=== PATIENT | male | born 1955 | race Caucasian/White ===

== ENCOUNTER 2023-10-25 10:27 | Emergency (ER) | payer OTHER, SELFPAY ==
[2023-10-25 10:52] VITALS: BP 125/80
[2023-10-25 11:16] LABS: % Basophils 0.3 % (0-2); % Eosinophils 2.1 % (0-6); % Immature Granulocytes 0.1 % (0-0.5); % Lymphocytes 20.4 % (20.5-51.1); % Monocytes 11.8 % (1.7-9.3); % Neutrophils 65.3 % (42.2-75.2); Absolute Eosinophils 0.2 10^3/uL (0-0.7); Absolute Lymphocytes 1.6 10^3/uL (1.2-3.4); Absolute Monocytes 0.9 10^3/uL (0.1-0.6); Hemoglobin 15.4 g/dL (13.0-18.0); Mean Corp Hgb Conc. 35.8 g/dL (33.0-37.0); Mean Corpuscular Hgb 33.3 pg (27.0-31.0); Mean Corpuscular Volume 92.9 fL (80.0-94.0); Mean Platelet Volume 10.4 fL (7.4-10.4); Nucleated Red Blood Cells % 0 % (-); Platelet Count 207 10^3/uL (130-400); Red Blood Cell Count 4.63 10^6/uL (4.70-6.10); Red Cell Dist. Width 12.2 % (11.5-14.5); White Blood Cell Count 7.6 10^3/uL (4.8-10.8)
[2023-10-25 11:36] LABS: Troponin I < 0.012 ng/ml
--- NOTE | 2023-10-25 11:44 | ED.GENMED ---
History of Present Illness
General
Chief Complaint: Musculo-Skeletal Complaint
Time Seen by Provider: 10/25/23 11:33
History of Present Illness
History of Present Illness:
Patient is a 68-year-old male with past medical history of CAD with CABG x 3 in 2019, history of vertigo, hypertension, GERD, and history of prior kidney stones, here today for evaluation of approximately 5 days of atraumatic left-sided shoulder
pain. Pain is primarily anteriorly along the left shoulder joint and is noted to be worse with movement and improved with rest. Patient denies radiation of pain into the chest. No difficulty breathing. No back pain noted. He did at 1 point
noticed numbness in his left pinky but this was after waking up and quickly resolved. He has had no recurrence of this. Pain at times does radiate along the biceps region. Patient denies falls, trauma, or injuries. Patient was seen by his family
doctor today, ordered an EKG, which was noted to be abnormal and ultimately directed to the emergency department to rule out ACS.
Past History
Past History
ED Past Medical History: GERD, HTN and Other (Kidney stones)
ED Past Surgical History: Cardiac and Other (Umbilical hernia); Negative Appendectomy
Social History
Tobacco: Non-smoker
Alcohol: Occasional
Drug: None
Personal:
Living: with family
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
Family History
Family History: Other (Noncontributory)
Review of Systems
Review of Systems
All Other Systems: ROS reviewed and negative except as documented in HPI and ROS
Phy Exam
Physical Exam
Physical Exam:
GENERAL: Alert , in no apparent distress
EYE: pupils equal and reactive
NECK: Supple, no significant adenopathy.
ENT: o/p clr, mmm.
CARDIAC: Regular rate and rhythm .
LUNGS: Clear breath sounds bilaterally, no acute respiratory distress, no wheezes/rales/rhonchi
ABDOMEN: Soft, without focal tenderness, no r/g, no cvat
NEUROLOGICAL: Alert and oriented, no focal neuro deficits
SKIN: Warm and dry, skin intact.
MUSCULOSKELETAL: No edema, well perfused. There is significant tenderness along the anterior aspect of the left shoulder joint and there is subjective pain with range of motion. The patient has limited flexion, extension, and abduction of the left
shoulder joint which he states is secondary to pain. There is no swelling. No erythema or warmth. Pulses 2+ throughout. Sensation intact. Game Advisor strength intact.
PSYCH: Normal and appropriate interaction.
Course
Orders/Labs/Results
Orders:
Orders
10/25/23
Electrocardiogram (*1) Stat
Comment: DONE EMR
10/25/23 11:03
Complete Blood Count/With Diff Urgent
Comprehensive Metabolic Panel Urgent
Troponin I Urgent
10/25/23 11:43
CR Chest - 2 Views Urgent
Comment:
Reason For Exam: left sided shoulder pain
Shoulder, Left 2 View CR [CR Shoulder - Left Min 2 View*] Urgent
Comment:
Reason For Exam: shoulder pain
Abnormal Lab Results
10/25/23
11:03
RBC 4.63 L 10^6/uL
(4.70-6.10)
MCH 33.3 H pg
(27.0-31.0)
Absolute Monos (auto) 0.9 H 10^3/uL
(0.1-0.6)
Lymphocytes % 20.4 L %
(20.5-51.1)
Monocytes % 11.8 H %
(1.7-9.3)
Chloride 108 H mmol/L
(98-107)
BUN 25 H mg/dl
(9-20)
Glucose 134 H mg/dl
(70-99)
Alkaline Phosphatase 169 H U/L
(38-126)
10/25/23 11:03
10/25/23 11:03
Vital Signs
Initial and Last Documented VS:
Initial Vital Signs
Temp Pulse Resp BP Pulse Ox
98.0 F 65 16 125/80 98
10/25/23 10:52 10/25/23 10:52 10/25/23 10:52 10/25/23 10:52 10/25/23 10:52
Last Documented Vital Signs
Temp Pulse Resp BP Pulse Ox
98.0 F 65 16 125/80 98
10/25/23 10:52 10/25/23 10:52 10/25/23 10:52 10/25/23 10:52 10/25/23 10:52
MDM/Problems Addressed
Differential Diagnosis Includes:
Patient is a 68-year-old male with past medical history of CAD with CABG x 3 in 2019, history of vertigo, hypertension, GERD, and history of prior kidney stones, here today for evaluation of approximately 5 days of atraumatic left-sided shoulder
pain. Overall, patient appears very well. Vitals grossly within normal limits. Physical examination described above. The patient has significant tenderness along the anterior aspect of the left shoulder joint and there is subjective pain with
range of motion. The patient has limited flexion, extension, and abduction of the left shoulder joint which he states is secondary to pain. There is no swelling. No erythema or warmth. Pulses 2+ throughout. Sensation intact. Game Advisor strength
intact. The patient's symptoms today are consistent with a muscular etiology and are not suggestive of ACS, however, given prior history we will begin with EKG, chest x-ray, and screening labs. Will also obtain a left shoulder x-ray.
10/25/2023 13:31: EKG is abnormal but consistent with the patient's baseline without significant changes. Screening labs consistent with the patient's baseline without elevated troponin. Chest x-ray negative. Shoulder x-ray pending but does not
reveal any acute abnormalities on preliminary read. Discussed with patient at bedside. Symptoms/findings at this time is consistent with a muscular etiology possibly secondary to a rotator cuff tendinopathy. Offered patient to wait for official
read of shoulder x-ray but patient declined. He is recommended to follow-up with his primary care provider and have their office obtain the official x-ray report. In the meantime, recommend continued supportive measures and will treat with
Tylenol/ibuprofen. Given symptoms, recommend close follow-up with orthopedics. Patient voices understanding of the above plan. Patient was given strict return precautions for worsening symptoms. All questions answered. Stable for discharge.
*EKG
Interpreted by ED Provider?: Yes
EKG Intrepretation Date: 10/25/23
EKG Intrepretation Time: 11:44
Interpretation: abnormal
Comparison EKG: no changes
Heart Rate: 69
Rate: normal
Rhythm: sinus
QRS Pattern: right bundle branch block
Ischemia: T-wave inversion (V1 to V3)
*Critical Care Note
Total Time (30-74mins, 75-104mins- exclusive of procedures): Not Applicable
ED Attending Note
-
Portions of this chart may have been created with voice recognition software.� Occasional wrong word or��sound alike� substitutions may have occurred due to the inherent limitations of voice recognition software.
Discharge Plan
Departure
Patient Disposition: Home (Routine Discharge)
Date of Disposition: 10/25/23
Time of Disposition: 13:10
Patient with high blood pressure during this ER visit?: No
Condition: Good
Covid-19: Not Applicable
Discharge Problem:
Acute pain of left shoulder
Instructions: Shoulder Pain ED
Prescriptions:
No Action
aspirin 81 MG tablet,delayed release (DR/EC)
81 mg PO DAILY
atenolol 25 MG tablet
25 mg PO DAILY
atorvastatin 80 MG tablet
80 mg PO HS Qty: 90 0RF
oxycodone 5 MG tablet
5 mg PO Q4HPRN PRN (Reason: mild pain) Qty: 28 0RF
acetaminophen 325 MG tablet
650 mg PO Q4HPRN PRN (Reason: mild pain/ fever)
polyethylene glycol 3350 17 GRAMS powder in packet
17 grams PO DAILYPRN PRN (Reason: constipation)
sennosides-docusate sodium 1 TABLET tablet
1 tab PO [id number] PRN (Reason: constipation)
docusate sodium 100 MG capsule
100 mg PO DAILYPRN PRN (Reason: constipation)
multivitamin with folic acid [Tab-A-Flory] 1 TABLET tablet
1 tab PO DAILY
apixaban [Eliquis] 5 MG tablet
5 mg PO BID Qty: 42 0RF
Rx Instructions:
Take 10mg twice a day for one week then 5mg twice a day for the days following
tamsulosin [Flomax] 0.4 mg capsule
0.4 mg PO DAILY Qty: 20 0RF
oxycodone-acetaminophen [Percocet] 5-325 mg tablet
1 tab PO Q6HPRN PRN (Reason: pain) Qty: 8 0RF
ketorolac 10 mg tablet
10 mg PO TID PRN (Reason: Pain) 5 Days Qty: 10 0RF
ondansetron 4 mg tablet,disintegrating
4 mg PO TIDPRN PRN (Reason: nausea/vomiting) Qty: 10 0RF
oxycodone 5 mg tablet
5 mg PO Q8H PRN (Reason: Pain) Qty: 7 0RF
tamsulosin [Flomax] 0.4 mg capsule
0.4 mg PO DAILY Qty: 20 0RF
Referrals:
Tacho Morris MD [Family Provider] - Follow up in 2-3 days
Garett Tian MD [Active] - Follow up in 1 week
Activity Restrictions/Additional Instructions:
You were seen today for evaluation of left-sided shoulder pain. We obtained an x-ray of your shoulder which is currently pending at the time of your discharge. On preliminary read there is no acute issues noted. Please contact your family doctor
to obtain the official report of the x-ray report.
Your EKG is consistent with your baseline. Your blood work reveals no evidence of heart problems.
Continue taking [id number] ibuprofen and Tylenol as directed as needed. Rest. Avoid heavy lifting.
Follow-up with your doctor within the next 2 to 3 days for close reevaluation. We also recommend following up with an outcomes specialist for further testing and evaluation.
Return for any new, worsening, or concerning symptoms.
Interventions
Interventions:
*Risk Screen - Suicide Last Done: 10/25/23 11:46
*General Assessment Last Done: 10/25/23 11:46
*Neglect/Abuse Screening Last Done: 10/25/23 11:46
ED-Musculoskeletal Assessment Last Done: 10/25/23 11:46
Discharge Date and Time
Print Language: PERSIAN
[2023-10-25 11:45] LABS: ALT (SGPT) 36 U/L (0-50); AST (SGOT) 43 U/L (17-59); Albumin 4.2 g/dl (3.5-5.0); Alkaline Phosphatase 169 U/L (38-126); Blood Urea Nitrogen 25 mg/dl (9-20); Calcium 9.3 mg/dl (8.4-10.2); Carbon Dioxide 22 mmol/L (22-30); Chloride 108 mmol/L (98-107); Glucose 134 mg/dl (70-99); Potassium 4.6 mmol/L (3.5-5.1); Sodium 138 mmol/L (135-145); Total Bilirubin 0.8 mg/dl (0.2-1.3); Total Protein 7.3 g/dl (6.3-8.2); eGFR > 60.00
[2023-10-25 14:14] VITALS: BP 130/78
== END 2023-10-25 14:15 | disposition home or self-care (01) ==
LOC: EMR 10:27
PROVIDERS: EMERGENCY PHYSICIAN Emergency Medicine; FAMILY PHYSICIAN Family Medicine
DX: M25.512 Pain in left shoulder (principal); I10 Essential (primary) hypertension; K21.9 Gastro-esophageal reflux disease without esophagitis; I25.10 Atherosclerotic heart disease of native coronary artery without angina pectoris
CPT/HCPCS: 99284; 71046; 73030; 80053; 84484; 85025; 93005

== ENCOUNTER → 2025-01-08 13:31 | Outpatient (REF) | payer OTHER, SELFPAY ==
[2025-01-08 14:18] LABS: Hematocrit 46.0 % (39.0-52.0); Hemoglobin 16.2 g/dL (13.0-18.0); Mean Corp Hgb Conc. 35.2 g/dL (33.0-37.0); Mean Corpuscular Volume 96.2 fL (80.0-94.0); Nucleated Red Blood Cells % 0 % (-); Platelet Count 200 10^3/uL (130-400); Red Cell Dist. Width 12.2 % (11.5-14.5)
[2025-01-08 14:37] LABS: Blood Urea Nitrogen 21 mg/dl (9-20); Calcium 9.4 mg/dl (8.4-10.2); Carbon Dioxide 27 mmol/L (22-30); Chloride 108 mmol/L (98-107); Glucose 89 mg/dl (70-99); Potassium 5.1 mmol/L (3.5-5.1); Sodium 140 mmol/L (135-145); eGFR > 60.00
== END ==
LOC: REG 13:31
PROVIDERS: ATTENDING PHYSICIAN Physician Assistant; FAMILY PHYSICIAN Family Medicine
DX: R10.30 Lower abdominal pain, unspecified (principal); K59.00 Constipation, unspecified
CPT/HCPCS: 36415; 80048; 85025

== ENCOUNTER → 2025-01-09 08:13 | Outpatient (REF) | payer OTHER, SELFPAY | LOC: RAD 08:13 | PROVIDERS: ATTENDING PHYSICIAN Physician Assistant | DX: K59.00 Constipation, unspecified (principal); R10.30 Lower abdominal pain, unspecified | CPT/HCPCS: 74177; Q9967 ==